=== PATIENT | male | born 1930 | race African-American/Black ===

== ENCOUNTER → 2017-02-19 | Outpatient (CLI) | payer BC ==
[2014-04-27 14:50] VITALS: BP 104/62
[~2017-02-19] MED LIST: AMLO5TAB2 PO; ASPI81TA2 PO; ATORVASTATIN CA80 MG PO; CHOL20004 PO; CIPR250T30 PO; ENAL20TA PO; TAMS0.4C97 PO; [UNRECOGNIZED DRUG - REMARK]
--- NOTE | 2017-02-19 17:06 | RAD ---
Scrotal ultrasound, 02/19/2017: History: Epididymal cysts, hematuria The right testicle measures 3.2 x 2.4 x 1.6 cm while the left testicle measures 3.3 x 2.1 x 1.8 cm. No testicular mass is seen. Symmetrical blood flow is present within the testicles. There is a small left hydrocele. Several small epididymal cysts are present on the left. The largest of these measures 7 mm. Similar findings were present on the study from 05/23/2016. A small mass or area of focal thickening in the right epididymis seen on the 05/22/2016 study is no longer visible. There is only a trace amount of fluid in the right scrotal sac. IMPRESSION: 1. No testicular abnormality is detected. 2. Stable small left epididymal cysts. 3. Small left hydrocele.
== END | disposition home or self-care (01) ==
LOC: US 14:42
PROVIDERS: ATTEND Urology
DX: N50.3 Cyst of epididymis (principal); N43.3 Hydrocele, unspecified
CPT/HCPCS: 76870

== ENCOUNTER → 2017-03-08 | Outpatient (CLI) | payer BC ==
[2014-04-27 14:50] VITALS: BP 104/62
[2017-03-08 14:06] LABS: CALCIUM 9.3 mg/dL (8.5-10.1); CREATININE 1.5 mg/dL (0.7-1.3); GFR 53.9; POTASSIUM 4.1 mmol/L (3.5-5.1)
--- NOTE | 2017-03-08 14:18 | RAD ---
Indication history of prostate malignancy. Bleeding from the previous. Noncontrast imaging through the abdomen and pelvis was performed. No IV or gastrointestinal contrast was administered. Comparison is made to a study one year ago. No acute finding is seen at either lung base. Known hepatic cysts are reproduced. A new finding involving the liver is not seen. The spleen appears unremarkable. Known cholelithiasis is reproduced. The pancreas appears unremarkable. Bilateral renal calculi and numerous right renal cysts are noted appearing similar to the previous exam. No acute or new finding is seen in the abdomen. In the pelvis post therapeutic changes are seen in the prostate bed. There is diffuse thickening of the urinary bladder wall. This is similar to the previous exam. This may be chronic. Underlying cystitis accounting for the appearance is not excluded. There is thickening of the rectosigmoid. This too however is similar to the previous exam but again an inflammatory process involving the rectosigmoid is not excluded. There are degenerative changes in the lumbar spine. IMPRESSION: No significant change in the appearance of the abdomen and pelvis relative to the study one year ago. Hepatic cysts noted, unchanged. Bilateral renal calculi and multiple cysts associated with the right kidney unchanged. Thickening of the urinary bladder wall and thickening of the rectosigmoid are noted, unchanged.. PQRS Compliance Statement: One or more of the following individualized dose reduction techniques were utilized for this examination: 1. Automated exposure control 2. Adjustment of the mA and/or kV according to patient size 3. Use of iterative reconstruction technique
== END | disposition home or self-care (01) ==
LOC: CT 13:24
PROVIDERS: ATTEND Urology
DX: Z12.5 Encounter for screening for malignant neoplasm of prostate (principal); C61 Malignant neoplasm of prostate
CPT/HCPCS: 36415; 74176; 80048; G0103

== ENCOUNTER → 2017-06-10 | Outpatient (CLI) | payer BC ==
[2014-04-27 14:50] VITALS: BP 104/62
[~2017-06-10] MED LIST changes: +ASPI-630 PO; -ASPI81TA2 PO; -CHOL20004 PO; +CHOL200074 PO
[2017-06-10 14:26] LABS: BASO # 0.1 x10^3/uL (0.0-0.2); BASO % 1 % (0-3); EOS % 2 % (0-3); HEMATOCRIT 44.7 % (39.0-53.0); HEMOGLOBIN 15.2 g/dL (13.0-17.5); LYMPH # 1.6 x10^3/uL (1.0-4.8); LYMPH % 23 % (24-48); MEAN CORPUSCULAR HEMOGLOBIN 32 pg (25-35); MEAN CORPUSCULAR HGB CONC 34 g/dL (31-37); MEAN CORPUSCULAR VOLUME 93 fL (79-100); MONO % 5 % (0-9); NEUT % 69 % (31-73); PLATELET COUNT 164 x10^3/uL (140-400); RED BLOOD COUNT 4.82 x10^6/uL (4.30-5.70); RED CELL DISTRIBUTION WIDTH 13.4 % (11.5-14.5); WHITE BLOOD COUNT 6.7 x10^3/uL (4.0-11.0)
[2017-06-10 14:42] LABS: BILIRUBIN,URINE NEGATIVE (NEG); GLUCOSE,URINE NEGATIVE (NEG); NITRITE,URINE NEGATIVE (NEG); PH,URINE 5.5; PROTEIN,URINE 100 mg/dL (NEG-TRACE); UROBILINOGEN,URINE 0.2 mg/dL (0.2 mg/dL)
[2017-06-10 14:54] LABS: ALBUMIN 3.8 g/dL (3.4-5.0); ALBUMIN/GLOBULIN RATIO 1.2 (1.0-1.7); CALCIUM 8.7 mg/dL (8.5-10.1); CREATININE 1.5 mg/dL (0.7-1.3); GFR 53.8; MAGNESIUM 1.9 mg/dL (1.8-2.4); POTASSIUM 3.7 mmol/L (3.5-5.1); TOTAL BILIRUBIN 0.6 mg/dL (0.2-1.0); URIC ACID 6.3 mg/dL (3.5-7.2)
[2017-06-10 14:55] LABS: BACTERIA,URINE 0 /HPF (0-FEW); RBC,URINE TNTC /HPF (0-2); SQUAMOUS EPITHELIAL CELL,UR OCC /LPF; WBC,URINE OCC /HPF (0-4)
[2017-06-10 20:14] LABS: UR PROTEIN RD 60.8 mg/dL (Not Estab.)
[2017-06-11 06:19] LABS: PTH INTACT 55 pg/mL (15-65)
== END | disposition home or self-care (01) ==
LOC: LAB 13:46
PROVIDERS: ATTEND Internal Medicine Nephrology
DX: I12.9 Hypertensive chronic kidney disease with stage 1 through stage 4 chronic kidney disease, or unspecified chronic kidney disease (principal); N18.2 Chronic kidney disease, stage 2 (mild); N17.9 Acute kidney failure, unspecified; R31.0 Gross hematuria; Z68.28 Body mass index [BMI] 28.0-28.9, adult
CPT/HCPCS: 36415; 80053; 81001; 82306; 82570; 83735; 83970; 84100; 84156; 84443; 84550; 85025

== ENCOUNTER → 2017-12-03 | Outpatient (CLI) | payer BC | END | disposition home or self-care (01) | LOC: KCIC 15:57 | DX: R05 Cough (principal) | CPT/HCPCS: 71046 ==

== ENCOUNTER → 2017-12-11 | Outpatient (CLI) | payer BC | END | disposition home or self-care (01) | LOC: KCIC US 15:10 | DX: I65.23 Occlusion and stenosis of bilateral carotid arteries (principal); I10 Essential (primary) hypertension | CPT/HCPCS: 93880 ==

== ENCOUNTER → 2021-01-24 | Outpatient (CLI) | payer BC ==
[2014-04-27 14:50] VITALS: BP 104/62
[~2021-01-24] MED LIST changes: +AMLO-186 PO; -AMLO5TAB2 PO; -ENAL20TA PO; +ENAL20TA10 PO
--- NOTE | 2021-01-24 15:00 | KCIC ---
EXAM: Renal sonogram. HISTORY: Hematuria. TECHNIQUE: Sonographic imaging the kidneys and bladder was performed. COMPARISON: None. FINDINGS: The right kidney measures 10.5 cm [id number]. The left kidney measures 8.9 cm pole-to-grupo e. There are multiple simple appearing renal cysts, the largest of which is seen on the right measuri ng 7.0 cm. There is renal cortical lobulation which may be due to scarring. No convincing solid lesio n is seen. There is no hydronephrosis. There is a 5 mm echogenic structure within the left kidney whi ch may be artifactual due to a nonobstructing stone. The post void bladder residual is 59 cc. IMPRESSION: 1. Multiple simple appearing renal cysts. Follow-up is not routinely recommended for simple cysts. 2. Suspected left nephrolithiasis. 3. Renal cortical lobulation possibly due to scarring and slight relative decreased left renal size l ikely due to mild atrophy. 4. Post void bladder residual of 59 cc. Electronically signed by: Mery Michael MD (01/24/2021 2:57 PM) [id number]
--- NOTE | 2021-01-24 15:29 | KCIC ---
EXAMINATION: Magnetic resonance imaging (MRI) of the brain and brainstem without contrast 01/24/2021 2 :23 PM HISTORY: Dizziness for one year TECHNIQUE: Multiplanar multi-weighted MRI of the brain and brainstem was performed without intravenou s contrast using the general brain protocol. COMPARISON: None available. FINDINGS: The scalp and calvarium are normal. The superior sagittal sinus demonstrates normal venous flow. The corpus callosum is normal in shape and signal intensity. The posterior fossa is unremarkable. The p ituitary and sella are normal. The brainstem and craniocervical junction are unremarkable. Diffusion weighted images reveal no hyperintensities to suggest acute cerebral infarction. The suscep tibility weighted sequences reveal no evidence of acute or chronic hemorrhage. Ventricles, sulci and basal cisterns are prominent compatible with mild generalized cerebral volume loss. There are T2/FLAI R signal hyperintense foci in the periventricular and subcortical white matter most suggestive of mil d chronic small vessel ischemic changes. Small mucus retention cyst identified in the right maxillary sinus. The visualized portions of the ma stoids are unremarkable. The orbits appear normal with exception of bilateral lens replacement. Norm al flow voids are demonstrated in the carotid arteries and basilar artery. IMPRESSION: No evidence for acute or subacute ischemia. There are T2/FLAIR signal hyperintense foci in the periventricular and subcortical white matter most suggestive of mild chronic small vessel ischemic changes. Mild generalized cerebral volume loss. Electronically signed by: Sue Meek MD (01/24/2021 3:26 PM) [id number]
== END ==
LOC: KCIC US 13:20
PROVIDERS: ATTEND Family Medicine
DX: N28.1 Cyst of kidney, acquired (principal); R31.9 Hematuria, unspecified; R42 Dizziness and giddiness
CPT/HCPCS: 70551; 76770